=== PATIENT | female | born 1990 | race Hispanic/Latino ===

== ENCOUNTER 2020-02-20 21:22 | Emergency (ER) | payer SELFPAY ==
[2020-02-20 21:23] VITALS: BP 144/92; PULSE 87; RESP 22; TEMP 36.6; O2SAT 100
--- NOTE | 2020-02-20 22:40 | ED.HA ---
HPI - Headache General Chief Complaint: Headache Stated Complaint: migraine Time Seen by Provider: 02/20/20 22:17 Source: patient Mode of arrival: ambulatory Limitations: language barrier (beninese speaking) History of Present Illness HPI Narrative: This patient is a 29 year old female who presents for evaluation of migraine headache . Patient states she developed a headache 7 hours ago. This headache is located frontal and it is worse with light and sound. She has been having nausea and vomiting. She denies fever or chills. This headache is typical for her. MD elicited complaint: migraine Related Data Home Medications Medication Instructions Recorded Confirmed No Home Medications 02/20/20 02/20/20 Allergies Allergy/AdvReac Type Severity Reaction Status Date / Time No Known Allergies Allergy Unknown Verified 02/20/20 21:34 Review of Systems Review of Systems: All systems reviewed & are unremarkable except as noted in HPI and below Constitutional: Constitutional: Denies chills and Denies fever(s) Eyes: Eyes: Denies change in vision ENT: Denies nasal congestion Gastrointestinal: Gastrointestinal: Denies abdominal pain, Reports nausea and Reports vomiting Neurologic: Denies vertigo, Denies dizziness, Reports headache(s), Denies focal weakness and Denies weakness PMFSH Past Medical History Medical History (Updated 02/21/20 @ 00:18 by Cassandra Powell MD) Patient denies medical problems Social History Social History (Updated 02/21/20 @ 00:16 by Cassandra Powell MD) Smoking status: Never smoker Gender identity (if verbalized by the patient): Female Exam Narrative: Exam Narrative: GENERAL: Well-appearing, well-nourished, and in no acute distress. HEAD: Normocephalic, atraumatic EYES: PERRLA and EOMI, conjunctiva clear without discharge EARS: TM's clear bilaterally without erythema or dullness THROAT:Mucous membranes moist, NECK: Supple, without lymphadenopathy or mass RESPIRATORY: No respiratory distress, Airway patent, Respirations non-labored, Clear to auscultation without rales, rhonchi or wheeze HEART: Regular rate and rhythm. No murmur heard. Normal peripheral pulses. ABDOMEN: Soft, nontender, nondistended, normal active bowel sounds. No masses. No rebound or guarding, No organomegaly. EXTREMITIES: No edema, normal strength with full range of motion. SKIN: Warm, dry, normal color without rash NEURO: Alert and oriented x3. CN 2-12 grossly intact. No focal deficits. PSYCH: Normal mood and affect. Course Reevaluation(s) Reevaluation #1: PAtient states her pain has completely resolved. Her is at bedside. Date: 02/21/20 Time: 00:17 Vital Signs Vital signs: Vital Signs Temperature 97.9 F 02/20/20 21:23 Pulse Rate 87 02/20/20 21:23 Respiratory Rate 22 H 02/20/20 21:23 Blood Pressure 144/92 H 02/20/20 21:23 Pulse Oximetry 100 02/20/20 21:23 Temperature 97.9 F 02/20/20 21:23 Pulse Rate 81 02/21/20 00:58 Respiratory Rate 18 02/21/20 00:58 Blood Pressure 123/100 H 02/21/20 00:58 Pulse Oximetry 99 02/21/20 00:58 MDM - Headache Lab Data Labs: UCG Bedside Result Negative Reference Range: Negative Discharge Plan Discharge Clinical Impression: Migraine Patient Disposition: Home, Self-Care Condition: Stable Instructions: Antibiotic Form, Migraine Headache (ED), Acute Headache (ED) Prescriptions: No Action No Home Medications RF: 0 Follow-up/Referrals: Markus Will Jr., MD [Physician] - PHYSICIAN,[facility] [Primary Care Provider] - Discharge Date/Time: 02/21/20 00:41
[2020-02-20] MEDS: LACTATED RINGERS 1,000 ML 999 ML IV CONT (22:49)
[2020-02-20] MEDS: diphenhydrAMINE HCl INJ 50 MG/ML VIAL 25 MG IV PUSH (22:49)
[2020-02-20] MEDS: METOCLOPRAMIDE HCL INJ 10 MG/2 ML VIAL IV PUSH (22:49)
--- NOTE | 2020-02-20 23:11 | PC.NURSE ---
Report received from SEBASTIAN Sierra. Assumed care of patient at this time.
[2020-02-21 00:58] VITALS: BP 123/100; PULSE 81; RESP 18; O2SAT 99
== END 2020-02-21 00:41 | disposition home or self-care (01) ==
PROVIDERS: Emergency Provider General Practice
DX: G43.909 Migraine, unspecified, not intractable, without status migrainosus (principal)
CPT/HCPCS: 81025; 96361; 96374; 96375; 99284; J1200; J2765; J7120

== ENCOUNTER 2021-11-06 21:26 | Emergency (ER) | payer OTHER, SELFPAY ==
[2021-11-06 21:30] VITALS: BP 132/70; PULSE 71; RESP 18; TEMP 36.3; O2SAT 100
--- NOTE | 2021-11-06 23:03 | ED.GENADULT ---
HPI - General Adult General Chief complaint: Headache Stated complaint: migraine Time Seen by Provider: 11/06/21 22:41 Source: patient, family and RN notes reviewed Mode of arrival: ambulatory Limitations: language barrier History of Present Illness HPI narrative: 30-year-old female with history of migraines presenting to the emergency department for evaluation of a migraine that has been progressing throughout the course of the day today. Patient states the migraine started as her typical frontal migraine but did not respond to her Tylenol or ibuprofen. Patient is also reporting nausea and vomiting. Patient states this migraine is similar in nature to her previous migraines and that when they get to this point they do not respond well to p.o. medications. Patient is German-speaking and patient's family member is helping to translate. They both declined the use of the translating computer. Related Data Home Medications Medication Instructions Recorded Confirmed No Home Medications 02/20/20 02/20/20 Allergies Allergy/AdvReac Type Severity Reaction Status Date / Time No Known Allergies Allergy Unknown Verified 02/20/20 21:34 Review of Systems Review of Systems: CONSTITUTIONAL: Denies fever, chills, or sweats. EYES: Denies visual changes, redness, or discharge. ENT: Denies rhinorrhea, congestion, sore throat, or otalgia. CARDIOVASCULAR: Denies chest pain, palpitations, or edema. RESPIRATORY: Denies cough or dyspnea. GASTROINTESTINAL: Denies abdominal pain, nausea, vomiting, or diarrhea. GENITOURINARY: Denies dysuria or hematuria. SKIN: Denies rash or itching. MUSCULOSKELETAL: Denies back pain, joint pain, or myalgia. NEUROLOGIC: see HPI All systems reviewed & are unremarkable except as noted in HPI and below PMFSH Past Medical History Medical History (Updated 11/07/21 @ 00:09 by Martín Polanco MD) Patient denies medical problems Social History Social History (Updated 02/21/20 @ 00:16 by Cassandra Powell MD) Smoking status: Never smoker Gender identity (if verbalized by the patient): Female Exam Narrative: APPEARANCE: Well appearing, no pain, no distress, well-nourished. HEAD: normocephalic, atraumatic. EYES: PERRLA/EOMI, conjunctivae clear. NECK: Supple. No adenopathy, no masses. RESPIRATORY: Airway patent, respirations nonlabored. Clear to auscultation bilaterally, no rales, rhonchi, wheezing. CARDIOVASCULAR: Regular rate and rhythm without murmurs rubs or gallops. ABDOMINAL: Soft, nontender, nondistended, normal bowel sounds MUSCULOSKELETAL: Moves all extremities. Strength/ROM intact, No edema, No calf tenderness. NEURO: Alert. Cranial nerves II through XII intact. Good coordination SKIN: Warm, dry. Normal Color Course Course Emergency Course: Patient reports her headache is resolved and patient is preferring discharge to home at this time. Vital Signs Vital signs: Vital Signs Temperature 97.3 F L 11/06/21 21:30 Pulse Rate 71 11/06/21 21:30 Respiratory Rate 18 11/06/21 21:30 Blood Pressure 132/70 11/06/21 21:30 Pulse Oximetry 100 11/06/21 21:30 Temperature 97.3 F L 11/06/21 21:30 Pulse Rate 57 L 11/07/21 00:22 Respiratory Rate 18 11/07/21 00:22 Blood Pressure 101/57 L 11/07/21 00:22 Pulse Oximetry 98 11/07/21 00:22 Medical Decision Making Vital Signs Vital Signs: Vital Signs Temperature 97.3 F L 11/06/21 21:30 Pulse Rate 71 11/06/21 21:30 Respiratory Rate 18 11/06/21 21:30 Blood Pressure 132/70 11/06/21 21:30 Pulse Oximetry 100 11/06/21 21:30 Temperature 97.3 F L 11/06/21 21:30 Pulse Rate 57 L 11/07/21 00:22 Respiratory Rate 18 11/07/21 00:22 Blood Pressure 101/57 L 11/07/21 00:22 Pulse Oximetry 98 11/07/21 00:22 Discharge Plan Discharge Clinical Impression: Migraine Qualifiers: Migraine type: unspecified Status migrainosus presence: without status migrainosus Intractability: intractable Qualified Code
[2021-11-06] MEDS: SODIUM CHLORIDE 0.9% IV 1,000 ML 999 ML IV CONT (23:19)
[2021-11-06] MEDS: diphenhydrAMINE HCl INJ 50 MG/ML VIAL 25 MG IV PUSH (23:19)
[2021-11-06] MEDS: PROCHLORPERAZINE EDISYLATE 10 MG/2 ML VIAL IV PUSH (23:39)
[2021-11-06] MEDS: KETOROLAC 15 MG/ML VIAL (*BKC) IV PUSH (23:39)
[2021-11-07 00:22] VITALS: BP 101/57; PULSE 57; RESP 18; O2SAT 98
== END 2021-11-07 00:32 | disposition home or self-care (01) ==
PROVIDERS: Emergency Provider Emergency Medicine
DX: G43.919 Migraine, unspecified, intractable, without status migrainosus (principal)
CPT/HCPCS: 96361; 96374; 96375; 99284; J0780; J1200; J1885; J7030